=== PATIENT | male | born 1965 | race African-American/Black ===

== ENCOUNTER 2017-05-30 08:41 | Emergency (ER) | payer SELFPAY ==
[2017-05-30] MEDS ORDERED: Adacel (T-DAP) 0.5 ML VIAL ONE (10:46)
[2017-05-30] MEDS ORDERED: Acetaminophen 500 MG TAB ONE (10:46)
[2017-05-30 11:18] LABS: Anion Gap 13 mmol/L (10-20); BUN (Urea Nitrogen) 8 mg/dL (8.9-20.6); Calc. Creatinine Clearance 0 mL/min (70-130); Calcium 8.8 mg/dL (7.8-10.44); Carbon Dioxide 24 mmol/L (22-29); Chloride 106 mmol/L (98-107); Estimated GFR-MDRD Greater than 90
--- NOTE | 2017-05-30 13:14 | RAD ---
RADIOGRAPH RIGHT FOOT 3 VIEWS: Date: 05/30/17 HISTORY: 52-year-old male with right foot swelling for 2 days. FINDINGS: No periosteal elevation, permeative lesion, osteolytic lesion, osteoblastic lesion, or fracture. Fla tfoot. Degenerative changes of the ankle, incompletely imaged. Plantar calcaneal enthesophyte. Mild hallux valgus at the first MTP, with mild bony hypertrophy of the medial aspect of the first metatar jamel head. Minimal or mild DJD at first MTP joint. No high grade degenerative changes elsewhere. IMPRESSION: 1. 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 2. Pes planus. 3. Mild hallux valgus metatarsus primus varus. 4. No fracture. POS: [facility]
--- NOTE | 2017-05-30 13:46 | CT ---
CT BRAIN NONCONTRAST: HISTORY: 52-year-old male status post acute head trauma. FINDINGS: There is no midline shift or any other mass effect. There is no evidence of acute intracranial hemo rrhage, large cortical infarct, obstructive hydrocephalus, or extraaxial fluid collection. The calv arium is intact. There is diffuse parenchymal volume loss. There are low attenuation areas in the white matter. These are nonspecific, but they are probably chronic ischemic white matter changes du e to microvascular atherosclerosis. IMPRESSION: 1. No acute intracranial findings. 2. Involutional changes and chronic ischemic white matter changes. jn [] POS: [facility]
== END 2017-05-30 13:26 | disposition home or self-care (01) ==
LOC: ERS 08:41
DX: S01.81XA Laceration without foreign body of other part of head, initial encounter (principal); F17.210 Nicotine dependence, cigarettes, uncomplicated; Y08.89XA Assault by other specified means, initial encounter
CPT/HCPCS: 36415; 70450; 80048; 90471; 90715

== ENCOUNTER 2018-05-21 11:37 | Emergency (ER) | payer SELFPAY ==
[2018-05-21] MEDS ORDERED: Lidocaine 1% w/Epinephrine 1:100K 20 ML VIAL ONE (11:57)
[2018-05-21] MEDS ORDERED: Adacel (T-DAP) 0.5 ML VIAL ONE (12:20)
[2018-05-21] MEDS ORDERED: Bacitracin Zinc 1 Packet ONE (13:03)
== END 2018-05-21 13:12 | disposition home or self-care (01) ==
LOC: ERS 11:37
DX: S01.83XA Puncture wound without foreign body of other part of head, initial encounter (principal); F17.210 Nicotine dependence, cigarettes, uncomplicated; W18.09XA Striking against other object with subsequent fall, initial encounter
CPT/HCPCS: 12013; 90471; 90715; J2001

== ENCOUNTER 2018-05-26 09:19 | Emergency (ER) | payer SELFPAY | END 2018-05-26 10:35 | disposition home or self-care (01) | LOC: ERS 09:19 | DX: S01.81XD Laceration without foreign body of other part of head, subsequent encounter (principal); F17.210 Nicotine dependence, cigarettes, uncomplicated ==

== ENCOUNTER 2018-05-30 08:32 | Emergency (ER) | payer SELFPAY | END 2018-05-30 09:05 | disposition home or self-care (01) | LOC: ERS 08:32 | DX: S01.01XD Laceration without foreign body of scalp, subsequent encounter (principal); F17.210 Nicotine dependence, cigarettes, uncomplicated ==

== ENCOUNTER 2021-05-07 13:43 | Outpatient (CLI) | payer SELFPAY ==
[2021-05-08 11:16] LABS: SARS-CoV-2 PCR by NAA Not Detected (NotDetected)
== END 2021-05-07 13:44 | disposition home or self-care (01) ==
LOC: LABBT 13:43
PROVIDERS: ATTEND Orthopaedic Surgery Hand Surgery
DX: Z01.812 Encounter for preprocedural laboratory examination (principal); L02.511 Cutaneous abscess of right hand; Z20.822 Contact with and (suspected) exposure to COVID-19
CPT/HCPCS: U0003; U0005

== ENCOUNTER 2021-05-10 13:45 | Day surgery (SDC) | payer OTHER ==
[2021-05-09 10:04] VITALS: BMI 28.2
[2021-05-10] MEDS ORDERED: Fentanyl 100 MCG/2 ML VIAL ONE ×2 (16:35→20:42)
[2021-05-10] MEDS ORDERED: Neomycin-Polymyxin 1 ML AMP ONE (17:24)
[2021-05-10] MEDS ORDERED: Mineral Oil Sterile 10 ML VIAL ONE (17:24)
[2021-05-10] MEDS ORDERED: Bacitracin Zinc Ointment 30 gm TUBE ONE (17:24)
[2021-05-10] MEDS ORDERED: Thrombin 5000 UNITS/5 ML VIAL ONE (17:24)
[2021-05-10] MEDS ORDERED: Bupivacaine PF 0.5% 30 ML VIAL ONE (17:24)
[2021-05-10] MEDS ORDERED: ePHEDrine 50 MG/ML VIAL ONE (17:54)
[2021-05-10] MEDS ORDERED: Dexamethasone 20 MG/5 ML VIAL ONE (17:54)
[2021-05-10] MEDS ORDERED: PROPOFOL 200 MG/20 ML VIAL ONE (17:54)
[2021-05-10] MEDS ORDERED: Lidocaine 1% PF 5 ML VIAL ONE (17:54)
[2021-05-10] MEDS ORDERED: Ketorolac Tromethamine 30 MG/ML VIAL ONE ×2 (17:54→19:33)
[2021-05-10] MEDS ORDERED: Ondansetron PF 4 MG/2 ML Vial ONE (17:54)
[2021-05-10] MEDS ORDERED: PHENYLEPHRINE-NS 100 MCG/ML 10 ML SYRINGE ONE (17:54)
[2021-05-10] MEDS ORDERED: HYDROcodone/Acetaminophen 5/325 mg Tablet ONE (20:13)
== END 2021-05-10 21:33 | disposition home or self-care (01) ==
LOC: SDC 13:45
PROVIDERS: ATTEND Orthopaedic Surgery Hand Surgery
PROC: 0HRFX74 Replacement of Right Hand Skin with Autologous Tissue Substitute, Partial Thickness, External Approach (ICD-10-PCS; principal; 2021-05-10)
DX: S61.401A Unspecified open wound of right hand, initial encounter (principal); L02.511 Cutaneous abscess of right hand; M65.10 Other infective (teno)synovitis, unspecified site; F17.200 Nicotine dependence, unspecified, uncomplicated; Z98.890 Other specified postprocedural states
CPT/HCPCS: J0690; J1100; J1885; J2405; J2704; J3010; J3490; S0020

== ENCOUNTER 2022-02-11 20:37 | Emergency (ER) | payer SELFPAY ==
[2022-02-11 22:21] LABS: #Lymphocytes 1.3 thou/uL (1.20-3.40); #Monocytes 0.5 thou/uL (0.11-0.59); #Neutrophils 2.6 thou/uL (1.40-6.50); %Basophils 0.5 % (0.0-1.0); %Eosinophils 0.4 % (0.0-10.0); %Lymphocytes 29.2 % (21.0-51.0); %Monocytes 11.7 % (0.0-10.0); %Neutrophils 58.2 % (42.0-75.0); Hemoglobin 12.7 g/dL (14.0-18.0); Mean Corpuscular HGB CONC 32.9 g/dL (32.0-36.0); Mean Corpuscular Hemoglobin 33.3 pg (27.0-31.0); Mean Platelet Volume 6.5 fL (7.4-10.4); Platelet Count 174 thou/uL (130-400); RBC Distribution Width 11.2 % (11.5-14.5); Red Blood Cell (RBC) Count 3.82 mill/uL (4.70-6.10); White Blood Cell (WBC) Count 4.4 thou/uL (4.8-10.8)
[2022-02-11 22:41] LABS: ALT (SGPT) 18 U/L (8-55); AST (SGOT) 28 U/L (5-34); Albumin 3.5 g/dL (3.5-5.0); Alkaline Phosphatase 63 U/L (40-110); Anion Gap 11 mmol/L (10-20); BUN (Urea Nitrogen) 15 mg/dL (8.4-25.7); Bilirubin, Total 0.4 mg/dL (0.2-1.2); Calc. Creatinine Clearance 0 mL/min (70-130); Calcium 8.4 mg/dL (7.8-10.44); Carbon Dioxide 24 mmol/L (22-29); Chloride 108 mmol/L (98-107); Globulin 3.6 g/dL (2.4-3.5); Glucose 88 mg/dL (70-105); Protein, Total 7.1 g/dL (6.0-8.3); Sodium 139 mmol/L (136-145)
== END 2022-02-12 00:49 | disposition home or self-care (01) ==
LOC: ERS 20:37
DX: L03.031 Cellulitis of right toe (principal); F17.210 Nicotine dependence, cigarettes, uncomplicated
CPT/HCPCS: 36415; 80053; 85025

== ENCOUNTER 2022-11-03 11:17 | Emergency (ER) | payer SELFPAY ==
[2022-11-03 13:28] LABS: #Lymphocytes 0.7 thou/uL (1.20-3.40); #Monocytes 0.2 thou/uL (0.11-0.59); #Neutrophils 3.7 thou/uL (1.40-6.50); %Basophils 0.1 % (0.0-1.0); %Eosinophils 0.2 % (0.0-10.0); %Lymphocytes 14.5 % (21.0-51.0); %Monocytes 4.6 % (0.0-10.0); %Neutrophils 80.5 % (42.0-75.0); Hemoglobin 11.5 g/dL (14.0-18.0); Mean Corpuscular HGB CONC 33.3 g/dL (32.0-36.0); Mean Corpuscular Hemoglobin 31.6 pg (27.0-31.0); Platelet Count 196 10x3/uL (130-400); RBC Distribution Width 11.2 % (11.5-14.5); Red Blood Cell (RBC) Count 3.65 mill/uL (4.70-6.10); White Blood Cell (WBC) Count 4.6 10x3/uL (4.8-10.8)
[2022-11-03 13:49] LABS: ALT (SGPT) 12 U/L (8-55); AST (SGOT) 32 U/L (5-34); Albumin 3.3 g/dL (3.5-5.0); Alkaline Phosphatase 66 U/L (40-110); Anion Gap 11 mmol/L (10-20); BUN (Urea Nitrogen) 11 mg/dL (8.4-25.7); Bilirubin, Total 0.6 mg/dL (0.2-1.2); Calc. Creatinine Clearance 0 mL/min (70-130); Calcium 7.9 mg/dL (7.8-10.44); Carbon Dioxide 24 mmol/L (22-29); Chloride 98 mmol/L (98-107); Estimated GFR 77; Globulin 4.2 g/dL (2.4-3.5); Glucose 131 mg/dL (70-105); Potassium 3.5 mmol/L (3.5-5.1); Protein, Total 7.5 g/dL (6.0-8.3); Sodium 129 mmol/L (136-145)
[2022-11-03 14:51] LABS: SARS-CoV-2 NAA Rapid Test DETECTED (NotDetected)
== END 2022-11-03 14:54 | disposition home or self-care (01) ==
LOC: ERS 11:17
DX: J18.9 Pneumonia, unspecified organism (principal); D72.819 Decreased white blood cell count, unspecified; Z20.822 Contact with and (suspected) exposure to COVID-19
CPT/HCPCS: 36415; 71045; 80053; 83880; 84484; 85025; 87040; 93005; U0002

== ENCOUNTER 2022-11-10 20:13 | Inpatient (IN) | payer SELFPAY ==
[~2022-11-10 20:13] MED LIST: Iopamidol-370 76% 500 ML 1 ML ONE
[2022-11-10 21:06] LABS: #Lymphocytes 0.6 thou/uL (1.20-3.40); #Monocytes 0.2 thou/uL (0.11-0.59); #Neutrophils 4.7 thou/uL (1.40-6.50); %Basophils 0.2 % (0.0-1.0); %Eosinophils 0.2 % (0.0-10.0); %Lymphocytes 10.7 % (21.0-51.0); %Monocytes 3.9 % (0.0-10.0); Hemoglobin 10.4 g/dL (14.0-18.0); Mean Corpuscular HGB CONC 33.3 g/dL (32.0-36.0); Mean Corpuscular Hemoglobin 31.2 pg (27.0-31.0); Mean Corpuscular Volume 93.7 fl (78.0-98.0); Mean Platelet Volume 7.4 fL (7.4-10.4); Platelet Count 243 10x3/uL (130-400); RBC Distribution Width 10.9 % (11.5-14.5); Red Blood Cell (RBC) Count 3.34 mill/uL (4.70-6.10); White Blood Cell (WBC) Count 5.6 10x3/uL (4.8-10.8)
[2022-11-10 21:25] LABS: ALT (SGPT) 80 U/L (8-55); AST (SGOT) 99 U/L (5-34); Albumin 3.2 g/dL (3.5-5.0); Alkaline Phosphatase 48 U/L (40-110); Anion Gap 15 mmol/L (10-20); BUN (Urea Nitrogen) 16 mg/dL (8.4-25.7); Bilirubin, Total 0.6 mg/dL (0.2-1.2); Calc. Creatinine Clearance 0 mL/min (70-130); Calcium 8.2 mg/dL (7.8-10.44); Carbon Dioxide 17 mmol/L (22-29); Chloride 98 mmol/L (98-107); Estimated GFR 89; Globulin 4.5 g/dL (2.4-3.5); Glucose 101 mg/dL (70-105); Protein, Total 7.7 g/dL (6.0-8.3); Sodium 126 mmol/L (136-145)
[2022-11-10 22:57] LABS: SARS-CoV-2 NAA Rapid Test Not Detected (NotDetected)
[2022-11-11] MEDS ORDERED: Ipratropium/Albuterol 3 ML NEB ONE (00:21)
[2022-11-11] MEDS ORDERED: Dexamethasone 10 MG/ML VIAL ONE (00:21)
[2022-11-11] MEDS ORDERED: Acetaminophen 325 MG TAB PO PRN (00:36)
[2022-11-11] MEDS ORDERED: Ondansetron PF 4 MG/2 ML Vial IVP PRN (00:36)
[2022-11-11 01:05] LABS: Anion Gap 15 mmol/L (10-20); BUN (Urea Nitrogen) 16 mg/dL (8.4-25.7); Calc. Creatinine Clearance 0 mL/min (70-130); Calcium 8.1 mg/dL (7.8-10.44); Carbon Dioxide 19 mmol/L (22-29); Chloride 100 mmol/L (98-107); Estimated GFR 88; Glucose 98 mg/dL (70-105); Potassium 4.4 mmol/L (3.5-5.1); Sodium 130 mmol/L (136-145)
[2022-11-11] MEDS: Ampicillin/Sulbactam 3 GM in Sodium Chloride 0.9% 100 ML IVPB SCH ×3 (03:27→14:24)
[2022-11-11 04:36] VITALS: BMI 22.5
[2022-11-11 05:38] LABS: #Lymphocytes 0.5 thou/uL (1.20-3.40); #Neutrophils 2.9 thou/uL (1.40-6.50); %Lymphocytes 14.9 % (21.0-51.0); %Monocytes 1.1 % (0.0-10.0); Hemoglobin 11.3 g/dL (14.0-18.0); Mean Corpuscular HGB CONC 33.8 g/dL (32.0-36.0); Mean Corpuscular Hemoglobin 31.9 pg (27.0-31.0); Mean Corpuscular Volume 94.5 fl (78.0-98.0); Mean Platelet Volume 7.3 fL (7.4-10.4); Platelet Count 237 10x3/uL (130-400); RBC Distribution Width 11.1 % (11.5-14.5); Red Blood Cell (RBC) Count 3.54 mill/uL (4.70-6.10); White Blood Cell (WBC) Count 3.4 10x3/uL (4.8-10.8)
[2022-11-11 06:00] LABS: ALT (SGPT) 76 U/L (8-55); AST (SGOT) 82 U/L (5-34); Alkaline Phosphatase 52 U/L (40-110); Anion Gap 12 mmol/L (10-20); BUN (Urea Nitrogen) 13 mg/dL (8.4-25.7); Bilirubin, Total 0.7 mg/dL (0.2-1.2); CRP (Inflammatory) 3.97 mg/dL (= or < 0.5); Calc. Creatinine Clearance 104 mL/min (70-130); Calcium 8.8 mg/dL (7.8-10.44); Carbon Dioxide 24 mmol/L (22-29); Chloride 106 mmol/L (98-107); Estimated GFR 101; Globulin 4.9 g/dL (2.4-3.5); Glucose 134 mg/dL (70-105); Potassium 4.2 mmol/L (3.5-5.1); Protein, Total 7.9 g/dL (6.0-8.3); Sodium 138 mmol/L (136-145)
[2022-11-11 06:03] LABS: Troponin I Less than 0.010 ng/mL (< 0.028)
[2022-11-11] MEDS ORDERED: Ascorbic Acid 500 mg Chewable Tablet PO SCH (09:00)
[2022-11-11] MEDS ORDERED: Dexamethasone 10 MG/ML VIAL SLOW IVP SCH (09:00)
[2022-11-11] MEDS ORDERED: Zinc Sulfate 220 MG CAP PO SCH (09:00)
[2022-11-11 12:39] VITALS: BP 135/86; TEMP 97.1
== END 2022-11-11 19:39 | disposition home or self-care (01) | DRG 193 ==
LOC: ERS 20:13 → 2SW 11-11 00:31 → OBSVTOIN 11-11 00:48
PROVIDERS: ADMIT Internal Medicine; ATTEND Internal Medicine
DX: J18.9 Pneumonia, unspecified organism (principal); J96.01 Acute respiratory failure with hypoxia; E87.1 Hypo-osmolality and hyponatremia; Z20.822 Contact with and (suspected) exposure to COVID-19; J02.9 Acute pharyngitis, unspecified; R79.89 Other specified abnormal findings of blood chemistry; R91.1 Solitary pulmonary nodule; Z98.890 Other specified postprocedural states; Z87.891 Personal history of nicotine dependence; Z86.16 Personal history of COVID-19
CPT/HCPCS: 36415; 71045; 71275; 80048; 80053; 83605; 83880; 83930; 83935; 84295; 84484; 85025; 86140; 87040; 87081; 87430; 96374; J0295; J1100; J1650; J3490; J7620; Q9967; U0002

== ENCOUNTER 2024-08-29 09:52 | Emergency (ER) | payer MEDICAID | END 2024-08-29 11:35 | disposition home or self-care (01) | LOC: ERS 09:52 | DX: M79.642 Pain in left hand (principal); H61.21 Impacted cerumen, right ear; R43.2 Parageusia; R43.0 Anosmia; R29.700 NIHSS score 0 | CPT/HCPCS: 87428; 99283 ==

== ENCOUNTER 2024-10-14 17:40 | Emergency (ER) | payer OTHER | END 2024-10-14 18:34 | disposition home or self-care (01) | LOC: ERS 17:40 | DX: S41.112D Laceration without foreign body of left upper arm, subsequent encounter (principal) ==